=== PATIENT | female | born 1995 | race Caucasian/White ===

== ENCOUNTER 2017-03-25 14:33 | Emergency (ER) | payer OTHER ==
[2017-03-25 14:37] VITALS: TEMP 97.9; BMI 31.1
--- NOTE | 2017-03-25 14:40 | PDOC ---
Rapid Medical Evaluation Chief Complaint: Vaginal Bleeding Time Seen by Provider: 03/25/17 14:36 Medical Evaluation: Allergies Allergy/AdvReac Type Severity Reaction Status Date / Time No Known Allergies Allergy Verified 03/25/17 14:35 03/25/17 14:36 The patient presents with a chief complaint of: Vaginal bleeding x1 day, 8 weeks I have performed a brief in-person evaluation of this patient; Pertinent physical exam findings TTP suprapubic region I have ordered the following: CBC, CMP, Beta Hcg, Type and Screen, UA, UC, Transvaginal US The patient will proceed to the ED for further evaluation.
[2017-03-25 15:36] LABS: URINE APPEARANCE SLCLOUDY; URINE BILIRUBIN NEGATIVE (NEGATIVE); URINE BLOOD 3+ (NEGATIVE); URINE COLOR YELLOW; URINE GLUCOSE (UA) NEGATIVE (NEGATIVE); URINE KETONE TRACE (NEGATIVE); URINE LEUK ESTERASE NEGATIVE (NEGATIVE); URINE NITRITE NEGATIVE (NEGATIVE); URINE PROTEIN NEGATIVE (NEGATIVE); URINE UROBILINOGEN NEGATIVE mg/dL (0.2-1.0)
[2017-03-25 15:39] LABS: URINE MUCUS RARE; URINE RBC 1 /hpf (0-3); URINE WBC 4 /hpf (3-5)
[2017-03-25] MEDS ORDERED: SODIUM CHLORIDE 0.9% 1000 ML INFUS.BAG IV ONE (15:39)
[2017-03-25 15:43] LABS: BASOPHIL 0.3 % (0-2.0); EOSINOPHIL 1.8 % (0-4.5); MCH 28.5 pg (25.7-33.7); MCHC 34.5 g/dl (32.0-36.0); MEAN CELL VOLUME 82.5 fl (80-96); MEAN PLT VOLUME 10.2 fl (7.5-11.1); NEUTROPHILS 63.1 % (42.8-82.8); PLATELET COUNT 244 K/MM3 (134-434); RDW 13.8 % (11.6-15.6); WHITE BLOOD COUNT 9.4 K/mm3 (4.0-10.0)
--- NOTE | 2017-03-25 15:46 | PDOC ---
History of Present Illness - General History Source: Patient Exam Limitations: No Limitations <Sugey Kumar - Last Filed: 03/25/17 15:39> - General History Source: Patient Exam Limitations: No Limitations - History of Present Illness Initial Comments: 03/25/17 15:46 The patient is a 22 year old female, who is currently 8 weeks with no significant past medical history who presents to the emergency department with with dysfunctional vaginal bleeding and lower abdominal pain. The patient reports having sharp lower abdominal pain for about an hour and a half. She reports having heavy bleeding with brown clots. LMP was /7. She notes also feeling dizzy and nauseous. She denies recent fevers, or chills. She denies recent nausea, vomit, diarrhea or constipation. She denies recent dysuria, frequency, urgency or hematuria. She denies recent chest pain or shortness of breath. Allergies: NKA Past surgical history: None reported. Social history: Nonsmoker. Denies EtOH use and recreational drug use. <Aki Ornelas - Last Filed: 03/25/17 15:47> - General Chief Complaint: Vaginal Bleeding Stated Complaint: 8WKS /BLEEDING Time Seen by Provider: 03/25/17 14:36 Past History - Past Medical History COPD: No - Reproductive History Is Patient Now?: Yes (#): 1 Para: 0 - Suicide/Smoking/Psychosocial Hx Smoking History: Former smoker Have you smoked in the past 12 months: No Information on smoking cessation initiated: No Hx Alcohol Use: No Drug/Substance Use Hx: No Substance Use Type: None <Sugey Kumar - Last Filed: 03/25/17 15:39> <Aki Ornelas - Last Filed: 03/25/17 15:47> - Past Medical History Allergies/Adverse Reactions: Allergies Allergy/AdvReac Type Severity Reaction Status Date / Time No Known Allergies Allergy Verified 03/25/17 14:35 Home Medications: Ambulatory Orders NK [No Known Home Medication] 03/25/17 Review of Systems - Review of Systems Able to Perform ROS?: Yes Comments:: 03/25/17 15:46 GENERAL/CONSTITUTIONAL: No fever or chills. No weakness. HEAD, EYES, EARS, NOSE AND THROAT: No change in vision. No ear pain or discharge. No sore throat. CARDIOVASCULAR: No chest pain or shortness of breath. RESPIRATORY: No cough, wheezing, or hemoptysis. GASTROINTESTINAL: +nausea and abdominal pain. No, vomiting, diarrhea or constipation. GENITOURINARY: +Dysfunctional vaginal bleeding. No dysuria, frequency, or change in urination. MUSCULOSKELETAL: No joint or muscle swelling or pain. No neck or back pain. SKIN: No rash NEUROLOGIC: +dizzy. No loss of consciousness, or change in strength/sensation. ENDOCRINE: No increased thirst. No abnormal weight change. HEMATOLOGIC/LYMPHATIC: No anemia, easy bleeding, or history of blood clots. ALLERGIC/IMMUNOLOGIC: No hives or skin allergy. <Aki Ornelas - Last Filed: 03/25/17 15:47> *Physical Exam - Vital Signs Last Vital Signs Temp Pulse Resp BP Pulse Ox 97.9 F 79 18 118/69 100 03/25/17 14:35 03/25/17 14:35 03/25/17 14:35 03/25/17 14:35 03/25/17 14:35 <Sugey Kumar - Last Filed: 03/25/17 15:39> - Vital Signs Last Vital Signs Temp Pulse Resp BP Pulse Ox 97.9 F 79 18 118/69 100 03/25/17 14:35 03/25/17 14:35 03/25/17 14:35 03/25/17 14:35 03/25/17 14:35 - Physical Exam Comments: 03/25/17 15:47 GENERAL: Awake, alert, and fully oriented, in no acute distress HEAD: No signs of trauma EYES: PERRLA, EOMI, sclera anicteric, conjunctiva clear ENT: Auricles normal inspection, hearing grossly normal, nares patent, Moist mucosa NECK: Normal ROM, supple, JVD, or masses LUNGS: Breath sounds equal, clear to auscultation bilaterally. No wheezes, and no crackles HEART: Regular rate and rhythm, normal S1 and S2, no murmurs, rubs or gallops ABDOMEN: Soft, bilateral lower quadrant lower pubic tenderness, normoactive bowel sounds. No guarding, no rebound. No masses OBGYN: Small blood coming from the os. No pooling of the blood. Cervix is closed. No adnexal masses or tenderness. EXTREMITIES: Normal range of motion, no edema. No clubbing or cyanosis. No cords, erythema, or tenderness. 2+DP/PT pulses. NEUROLOGICAL: Normal speech, normal gait, moves all extremities equally. Speech clear. SKIN: Warm, Dry, normal turgor, no rashes or lesions noted. <Aki Ornelas - Last Filed: 03/25/17 15:47> ED Treatment Course - LABORATORY CBC & Chemistry Diagram: 03/25/17 15:09 03/25/17 15:09 - ADDITIONAL ORDERS Additional order review: Laboratory Results 03/25/17 15:09 Urine Color Yellow Urine Appearance Slcloudy Urine pH 5.0 Ur Specific [place] 1.026 Urine Protein Negative Urine Glucose (UA) Negative Urine Ketones Trace H Urine Blood 3+ H Urine Nitrite Negative Urine Bilirubin Negative Urine Urobilinogen Negative <Sugey Kumar - Last Filed: 03/25/17 15:39> - LABORATORY CBC & Chemistry Diagram: 03/25/17 15:09 03/25/17 15:09 - ADDITIONAL ORDERS Additional order review: Laboratory Results 03/25/17 15:09 Urine Color Yellow Urine Appearance Slcloudy Urine pH 5.0 Ur Specific [place] 1.026 Urine Protein Negative Urine Glucose (UA) Negative Urine Ketones Trace H Urine Blood 3+ H Urine Nitrite Negative Urine Bilirubin Negative Urine Urobilinogen Negative <Aki Ornelas - Last Filed: 03/25/17 15:47> Medical Decision Making - Medical Decision Making 03/25/17 15:40 22-year-old female currently 8 weeks with an LMP of January 24 here today complaining of lower abdominal pain and vaginal bleeding which started approximately 1:30 PM today 2 hours prior to arrival. Does have mild nausea feeling lightheaded bleeding is a little less than a normal. She did have small clots no history of ectopic or miscarriage no urinary complaints no vomiting pain is moderate and crampy On exam patient is awake alert no acute distress cardiac lung exam is unremarkable abdomen is noted for bilateral lower quadrant and suprapubic tenderness no rebound or guarding pelvic with Pattee nurse present shows scant blood from the cervical Oz it's closed there is no adnexal tenderness or adnexal masses neuro alert and oriented 3 Differential is threatened AB, ectopic, incomplete AB versus early IUP plan IV fluids transvaginal ultrasound blood type and reassess beta hCG <Sugey Kumar - Last Filed: 03/25/17 15:39> *DC/Admit/Observation/Transfer - Attestations Scribe Attestion: 03/25/17 15:47 Documentation prepared by Aki Ornelas, acting as medical technician for Sugey Kumar MD. <Aki Ornelas - Last Filed: 03/25/17 15:47>
[2017-03-25 16:02] LABS: ALBUMIN 3.7 g/dl (3.4-5.0); ANION GAP 9 (8-16); BILIRUBIN,TOTAL 0.2 mg/dL (0.2-1.0); CALCIUM 8.6 mg/dL (8.5-10.1); CO2 23 mmol/L (21-32); CREATININE 0.4 mg/dL (0.55-1.02); GLUCOSE,RANDOM 87 mg/dL (74-106); SGOT/AST 38 U/L (15-37); SGPT/ALT 72 U/L (12-78)
[2017-03-25 16:16] LABS: ALK PHOS 60 U/L (45-117)
--- NOTE | 2017-03-25 18:35 | PDOC ---
*Physical Exam - Vital Signs Last Vital Signs Temp Pulse Resp BP Pulse Ox 97.9 F 79 18 118/69 100 03/25/17 14:35 03/25/17 14:35 03/25/17 14:35 03/25/17 14:35 03/25/17 14:35 - Physical Exam Comments: 03/25/17 18:30 gen: aaox3, nad heart: +s1s2 tachy lungs:cta abd: soft, nt/nd +bs ext: no c/c/e ED Treatment Course - LABORATORY CBC & Chemistry Diagram: 03/25/17 15:09 03/25/17 15:09 - ADDITIONAL ORDERS Additional order review: Laboratory Results 03/25/17 03/25/17 03/25/17 15:09 15:09 15:09 Sodium 138 Potassium 3.5 Chloride 106 Carbon Dioxide 23 Anion Gap 9 BUN 13 Creatinine 0.4 L Creat Clearance w eGFR > 60 Random Glucose 87 Calcium 8.6 Total Bilirubin 0.2 AST 38 H ALT 72 Alkaline Phosphatase 60 Total Protein 7.0 Albumin 3.7 Beta HCG, Quant 8686.9 Urine Color Yellow Urine Appearance Slcloudy Urine pH 5.0 Ur Specific [place] 1.026 Urine Protein Negative Urine Glucose (UA) Negative Urine Ketones Trace H Urine Blood 3+ H Urine Nitrite Negative Urine Bilirubin Negative Urine Urobilinogen Negative Urine WBC (Auto) 4 Urine RBC (Auto) 1 Ur Epithelial Cells Rare Urine Mucus Rare Blood Type O POSITIVE Antibody Screen Negative 03/25/17 15:09 RBC 4.59 MCV 82.5 MCHC 34.5 RDW 13.8 MPV 10.2 Neutrophils % 63.1 Lymphocytes % 27.5 Monocytes % 7.3 Eosinophils % 1.8 Basophils % 0.3 - Medications Given in the ED: ED Medications Discontinued Medications Generic Name Dose Route Start Last Admin Trade Name Freq PRN Reason Stop Dose Admin Sodium Chloride 1,000 ml 03/25/17 15:39 03/25/17 15:48 Normal Saline - IV 03/25/17 15:40 1,000 ml ONCE ONE Administration Medical Decision Making - Medical Decision Making 03/25/17 18:30 pt signed out pending labs and ultrasound -gestational sac without yolk sac -beta >8000 -passed 1 clot, no cramping -discussed need for repeat beta hcg in 48 hours (wednesday) -discussed need for repeat U/S on wednesday -discussed in detail all reasons to return to the ED -low suspicion for ectopic given no abd pain, no adnexal masses visualized on ultrasound -pt stable for d/c to home Rh + Pt verbalzies all understanding of instrcutions stable for d/c to home *DC/Admit/Observation/Transfer Diagnosis at time of Disposition: Threatened - Discharge Dispostion Disposition: HOME Condition at time of disposition: Stable Admit: No - Referrals Referrals: Matias Molina MD [Staff Physician] - - Patient Instructions Printed Discharge Instructions: DI for Threatened Additional Instructions: Please return to the ED on wednesday for repeat lab work and transvaginal ultrasound. You need to repeat your Beta HCG on wednesday. Please return to the ED if any symptoms worsen or you have any concerns. Please make an appointment to see the FURNITURE CLEANER. Print Language: LAO - Post Discharge Activity Forms/Work/School Notes: Back to Work
[2017-03-25 18:45] VITALS: BP 116/68; PULSE 72
[2017-03-25 19:41] LABS: URINE LEUK ESTERASE Negative (NEGATIVE)
== END 2017-03-25 18:45 | disposition home or self-care (01) ==
LOC: JER 14:33
PROC: 3E0337Z Introduction of Electrolytic and Water Balance Substance into Peripheral Vein, Percutaneous Approach (ICD-10-PCS; principal; 2017-03-25)
DX: O26.891 Other specified pregnancy related conditions, first trimester (principal); Z3A.08 8 weeks gestation of pregnancy; O20.0 Threatened abortion
CPT/HCPCS: 36415; 76817-TC; 80053; 81003; 81015; 84702; 85025; 86850; 86900; 86901; 87086; 99284-25

== ENCOUNTER 2017-03-27 14:05 | Emergency (ER) | payer OTHER ==
[2017-03-27 14:14] VITALS: TEMP 98.7; BMI 31.4
--- NOTE | 2017-03-27 14:40 | PDOC ---
History of Present Illness - General History Source: Patient Exam Limitations: No Limitations - History of Present Illness Initial Comments: 03/27/17 14:55 Chief complaint: Follow-up, vaginal bleeding Patient is a healthy 22-year-old female who was seen here 2 days ago with , 8 weeks with vaginal bleeding who was found to have a interuterine sac, quantitative hCG of 8686.9 and blood type of O+ and hemoglobin of 13.1. Patient was instructed to return for repeat quantitative and ultrasound. Patient feels well, no pain and scant bleeding. GENERAL/CONSTITUTIONAL: No fever, weakness. dizziness HEAD, EYES, EARS, NOSE AND THROAT: No change in vision. No ear pain or discharge. No sore throat. CARDIOVASCULAR: No chest pain RESPIRATORY: No shortness of breath or cough GASTROINTESTINAL: No pain, nausea, vomiting, diarrhea or constipation GENITOURINARY: No dysuria, + vaginal bleeding, MUSCULOSKELETAL: No neck or back pain SKIN: No rash NEUROLOGIC: No headache, vertigo, loss of consciousness, or loss of sensation. GENERAL: The patient is awake, alert, and fully oriented, in no acute distress. HEAD: Normal with no signs of trauma. EYES: Pupils equal, round and reactive to light, sclera anicteric, conjunctiva clear. ENT: pharynx: no erythema, no exudate, uvula midline NECK: supple CHEST: clear, nontender, rr ABD: soft, nontender Pelvic: Scant blood in the vagina, no active bleeding, no tenderness, no discharge EXTREMITIES: Normal range of motion, no edema. NEUROLOGICAL: Normal speech, normal gait. SKIN: Warm, Dry 03/27/17 14:58 <Laurel Peoples - Last Filed: 03/27/17 19:17> <Thi Lyles - Last Filed: 03/27/17 20:42> - General Chief Complaint: Vaginal Bleeding Stated Complaint: LAB WORK Time Seen by Provider: 03/27/17 14:39 Past History - Past Medical History COPD: No - Reproductive History (#): 1 Para: 0 - Suicide/Smoking/Psychosocial Hx Smoking History: Never smoked Have you smoked in the past 12 months: No Hx Alcohol Use: No Drug/Substance Use Hx: No Substance Use Type: None <Laurel Peoples - Last Filed: 03/27/17 19:17> <Thi Lyles - Last Filed: 03/27/17 20:42> - Past Medical History Allergies/Adverse Reactions: Allergies Allergy/AdvReac Type Severity Reaction Status Date / Time No Known Allergies Allergy Verified 03/27/17 14:14 Home Medications: Ambulatory Orders NK [No Known Home Medication] 03/25/17 *Physical Exam - Vital Signs Last Vital Signs Temp Pulse Resp BP Pulse Ox 98.7 F 88 20 135/65 99 03/27/17 14:09 03/27/17 14:09 03/27/17 14:09 03/27/17 14:09 03/27/17 14:09 <Laurel Peoples - Last Filed: 03/27/17 19:17> - Vital Signs Last Vital Signs Temp Pulse Resp BP Pulse Ox 98.7 F 88 20 135/65 99 03/27/17 14:09 03/27/17 14:09 03/27/17 14:09 03/27/17 14:09 03/27/17 14:09 <Thi Lyles - Last Filed: 03/27/17 20:42> ED Treatment Course - ADDITIONAL ORDERS Additional order review: Laboratory Results 03/27/17 15:05 Beta HCG, Quant 6470.8 <Thi Lyles - Last Filed: 03/27/17 20:42> Medical Decision Making - Medical Decision Making 03/27/17 14:59 Patient for re-eval of status with a Quant of 8686.92 days ago and an ultrasound that showed an intrauterine sac, Rh+ will get repeat quantitative, and ultrasound, patient has very little bleeding and no pain. 03/27/17 18:58 quantitative decreased to under 7000, awaiting us report signed out to Abdirizak lyles 03/27/17 19:17 <Laurel Peoples - Last Filed: 03/27/17 19:17> - Medical Decision Making 03/27/17 20:33 Spoke with patient regarding results of Ultrasound. Translation phone: Supervisor Fleshing [phone] Jennifer. Discussed results of blood work and ultrasound and importance of follow-up. Patient to return Apr 03 as discussed if she can not get in to see her POLICE PATROL OFFICER. Patient verbalized she has an appointment with her MEDICINE TEACHER on April 06. Patient is to return if any other concerns arise. Patient verbalized understanding. <Thi Lyles - Last Filed: 03/27/17 20:42> *DC/Admit/Observation/Transfer <Laurel Peoples - Last Filed: 03/27/17 19:17> - Discharge Dispostion Admit: No <Thi Lyles - Last Filed: 03/27/17 20:42> Diagnosis at time of Disposition: Anembryonic - Discharge Dispostion Disposition: HOME Condition at time of disposition: Stable - Patient Instructions Printed Discharge Instructions: DI for Miscarriage, Dealing With Miscarriage Additional Instructions: Cassy un seguimiento con maradiaga obstetra / gineclogo segn lo programado. Si puede obtener marquez huong antes, hgalo y lleve consigo los informes de ultrasonido. Si no puede ingresar para paco a maradiaga gineclogo antes del 23 de diciembre, regrese al departamento de emergencia el de diciembre para repetir el anlisis de robert y el ultrasonido. Si desarrolla fiebre, dolor abdominal, n / v / d, o cualquier otra queja, regrese para marquez evaluacin adicional. Abstngase de tener relaciones sexuales lauren francisco tiempo, hasta que maradiaga cuerpo se restablezca (generalmente 2 ciclos menstruales). Follow up with your POLICE PATROL OFFICER as scheduled. If you are able to get a sooner appointment please do so and bring ultrasound reports with you. If you are unable to get in to see your MEDICINE TEACHER before April 03, then return to emergency department on April 03 for repeat blood work and ultrasound. If you develop fever, abdominal pain, n/v/d, or any other complaints return for further evaluation. Refrain from sexual intercourse during this time, until your body resets itself (usually 2 menstrual cycles). Print Language: NEPALESE
[2017-03-27 20:49] VITALS: BP 109/58; PULSE 81
--- NOTE | 2017-03-28 08:26 | PDOC ---
*Physical Exam - Vital Signs Last Vital Signs Temp Pulse Resp BP Pulse Ox 98.7 F 81 18 109/58 98 03/27/17 14:09 03/27/17 20:47 03/27/17 20:47 03/27/17 20:47 03/27/17 20:47 Medical Decision Making - Medical Decision Making 03/28/17 08:26 Pt seen by the Advanced Practice Provider under my direct supervision Ancillary studies reviewed I agree with plan as outlined by the Advanced Practice Provider *DC/Admit/Observation/Transfer Diagnosis at time of Disposition: Anembryonic - Discharge Dispostion Disposition: HOME Condition at time of disposition: Stable - Referrals - Patient Instructions Printed Discharge Instructions: Dealing With Miscarriage, DI for Miscarriage Additional Instructions: Cassy un seguimiento con maradiaga obstetra / gineclogo segn lo programado. Si puede obtener marquez huong antes, hgalo y lleve consigo los informes de ultrasonido. Si no puede ingresar para paco a maradiaga gineclogo antes del de diciembre, regrese al departamento de emergencia el diciemb para repetir el anlisis de robert y el ultrasonido. Si desarrolla fiebre, dolor abdominal, n / v / d, o cualquier otra queja, regrese para marquez evaluacin adicional. Abstngase de tener relaciones sexuales lauren francisco tiempo, hasta que maradiaga cuerpo se restablezca (generalmente 2 ciclos menstruales). Follow up with your LEARNING DISABLED TEACHER as scheduled. If you are able to get a sooner appointment please do so and bring ultrasound reports with you. If you are unable to get in to see your RELIEF CAPTAIN before April 03, then return to emergency department on April 03 for repeat blood work and ultrasound. If you develop fever, abdominal pain, n/v/d, or any other complaints return for further evaluation. Refrain from sexual intercourse during this time, until your body resets itself (usually 2 menstrual cycles). Print Language: MOLDOVAN - Post Discharge Activity
== END 2017-03-27 20:53 | disposition home or self-care (01) ==
LOC: JER 14:05
DX: O26.891 Other specified pregnancy related conditions, first trimester (principal); O36.80X0 Pregnancy with inconclusive fetal viability, not applicable or unspecified; Z30.8 Encounter for other contraceptive management
CPT/HCPCS: 36415; 76817-TC; 84702; 99281-25

== ENCOUNTER 2017-06-06 23:33 | Emergency (ER) | payer OTHER ==
[2017-06-07 01:23] VITALS: BP 114/83; PULSE 79; TEMP 98.1; BMI 33.2
--- NOTE | 2017-06-07 01:30 | PDOC ---
Attending Attestation - HPI HPI: 06/07/17 02:32 Pt is a 22 yo F with no PMHx who presents to the ED with vaginal bleeding for the past 2 days. Patient reports associated dysuria and suprapubic pain accompanied with nausea and shortness of breath. Patient states she has been using 2-3 pads per day for her bleeding and presents to the ED for further evaluation. Patient also reports spontaneous 2 months ago. - Medical Decision Making 06/07/17 02:31 Documentation prepared by Polina Burrell, acting as medical insurance clerk for Darlene Tate MD <Polina Burrell - Last Filed: 06/07/17 04:11> - Resident Resident Name: Nick Garcias - ED Attending Attestation I have performed the following: I have examined & evaluated the patient, The case was reviewed & discussed with the resident, I agree w/resident's findings & plan, Exceptions are as noted - Physicial Exam PE: GENERAL: Awake, alert, and fully oriented, in no acute distress HEAD: No signs of trauma EYES: PERRLA, EOMI, sclera anicteric, conjunctiva clear ENT: Auricles normal inspection, hearing grossly normal, nares patent, oropharynx clear without exudates. Moist mucosa NECK: Normal ROM, supple, no lymphadenopathy, JVD, or masses LUNGS: Breath sounds equal, clear to auscultation bilaterally. No wheezes, and no crackles HEART: Regular rate and rhythm, normal S1 and S2, no murmurs, rubs or gallops ABDOMEN: Soft, nontender, normoactive bowel sounds. No guarding, no rebound. No masses EXTREMITIES: Normal range of motion, no edema. No clubbing or cyanosis. No cords, erythema, or tenderness NEUROLOGICAL: Cranial nerves II through XII grossly intact. Normal speech, normal gait SKIN: Warm, Dry, normal turgor, no rashes or lesions noted. : No exterior lesions. +Sm amt blood in vault. No discharge. Os closed. + Cervical tenderness. Adnexae nontender B/L. - Medical Decision Making Pt afebrile, +bleeding on exam. Noted to have leukocytosis, no obvious source. She has positive test, unclear if this is new or if there is retained material from prior 2 months ago (unlikely). D/w Dr. Jacobo, recommended abx and prompt f/u in clinic. <Darlene Tate - Last Filed: 06/07/17 04:45>
[2017-06-07 02:04] LABS: URINE APPEARANCE CLEAR; URINE BILIRUBIN NEGATIVE (NEGATIVE); URINE BLOOD 3+ (NEGATIVE); URINE COLOR LTYELLOW; URINE GLUCOSE (UA) NEGATIVE (NEGATIVE); URINE KETONE 1+ (NEGATIVE); URINE LEUK ESTERASE TRACE (NEGATIVE); URINE NITRITE NEGATIVE (NEGATIVE); URINE UROBILINOGEN NEGATIVE mg/dL (0.2-1.0)
[2017-06-07 02:05] LABS: URINE PROTEIN 1+ (NEGATIVE)
--- NOTE | 2017-06-07 02:05 | PDOC ---
History of Present Illness - General Chief Complaint: Pain Stated Complaint: STOMACH PAIN Time Seen by Provider: 06/07/17 01:27 History Source: Patient Exam Limitations: Language Barrier - History of Present Illness Initial Comments: 06/07/17 02:03 History taken via seismic interpreter. Patient is a 22F with history of a spontaneous two months ago here today complaining of abdominal pain from her belly button radiating to her lower abdomen for the 3 days. She is also complaining of associated pain with urination, vaginal pain and vaginal bleeding. She states her last menstrual period was on 05/07 but has had several episodes of vaginal bleeding, using about 2-3 pads per day. She has associated nausea and shortness of breath. Denies fevers, chills, chest pain. Past History - Past Medical History Allergies/Adverse Reactions: Allergies Allergy/AdvReac Type Severity Reaction Status Date / Time No Known Allergies Allergy Verified 03/27/17 14:14 Home Medications: Ambulatory Orders Cephalexin Monohydrate [Keflex -] 500 mg PO BID #14 capsule 06/07/17 COPD: No - Reproductive History (#): 1 Para: 0 - Immunization History Immunization Up to Date: No - Suicide/Smoking/Psychosocial Hx Smoking History: Smoker current status UNK Have you smoked in the past 12 months: No Information on smoking cessation initiated: No Hx Alcohol Use: No Drug/Substance Use Hx: No Substance Use Type: None Review of Systems - Review of Systems Comments:: 06/07/17 02:11 GENERAL/CONSTITUTIONAL: No fever or chills. HEAD, EYES, EARS, NOSE AND THROAT: No change in vision. No sore throat. CARDIOVASCULAR: No chest pain. Positive for shortness of breath. RESPIRATORY: No cough, wheezing, or hemoptysis. GASTROINTESTINAL: Positive for nausea. Negative for vomiting, diarrhea or constipation. GENITOURINARY: No dysuria, frequency, or change in urination. MUSCULOSKELETAL: No joint or muscle swelling or pain. No neck or back pain. SKIN: No rash NEUROLOGIC: No headache, vertigo, loss of consciousness, or change in strength/ sensation. ENDOCRINE: No increased thirst. No abnormal weight change HEMATOLOGIC/LYMPHATIC: No anemia, easy bleeding, or history of blood clots. ALLERGIC/IMMUNOLOGIC: No hives or skin allergy. *Physical Exam - Vital Signs Last Vital Signs Temp Pulse Resp BP Pulse Ox 98.1 F 79 18 114/83 100 06/06/17 23:55 06/06/17 23:55 06/06/17 23:55 06/06/17 23:55 06/06/17 23:55 - Physical Exam Comments: 06/07/17 02:13 GENERAL: Awake, alert, and fully oriented, in no acute distress HEAD: No signs of trauma, normocephalic, atraumatic EYES: PERRLA, EOMI, sclera anicteric, conjunctiva clear ENT: Auricles normal inspection, hearing grossly normal, nares patent, oropharynx clear without LUNGS: No distress, speaks full sentences, clear to auscultation bilaterally HEART: Regular rate and rhythm, normal S1 and S2, no murmurs, rubs or gallops, peripheral pulses normal and equal bilaterally. ABDOMEN: Soft, tender in suprapubic region. No guarding, no rebound. EXTREMITIES: Normal inspection, Normal range of motion, no edema. No clubbing or cyanosis. NEUROLOGICAL: Cranial nerves II through XII grossly intact. Normal speech, normal gait, no focal sensorimotor deficits SKIN: Warm, Dry, normal turgor, no rashes or lesions noted. 06/07/17 04:34 PELVIC: Normal external genitalia, +CMT, no adnexal masses, scant blood, no discharge appreciated ED Treatment Course - LABORATORY CBC & Chemistry Diagram: 06/07/17 02:53 06/07/17 02:53 - RADIOLOGY Radiology Studies Ordered: Category Date Time Status TRANSVAGINAL ULTRASOUND US [US] Stat Ultrasound 06/07/17 01:47 Ordered Medical Decision Making - Medical Decision Making 06/07/17 02:15 22F with history today of spontaneous here today with lower abdominal pain and vaginal bleeding. Vital signs stable. DDx includes, but is not limited to: ectopic, uti, pid. Will obtain ultrasound initially due to not having ultrasound past 2am. 06/07/17 04:39 Laboratory Tests 06/07/17 06/07/17 06/07/17 01:55 01:55 02:53 WBC 16.7 H D Hgb 10.5 L D Hct 32.7 Plt Count 302 D INR Urine Ketones 1+ H Urine Blood 3+ H Urine Nitrite Negative Ur Leukocyte Esterase Trace Urine RBC (Auto) 883 Urine HCG, Qual Positive 06/07/17 02:53 WBC Hgb Hct Plt Count INR 1.02 Urine Ketones Urine Blood Urine Nitrite Ur Leukocyte Esterase Urine RBC (Auto) Urine HCG, Qual CBC shows leukocytosis, mild anemia. UA significant for 1+ ketones and blood. CMP unremarkable. Pelvic exam shows CMT 06/07/17 04:42 Dr Jacobo is patient's OB, consulted. Suggests discharge with close follow up, next two days. Will discharge on keflex per her recommendations. Blood type O+, no rhogam required. *DC/Admit/Observation/Transfer Diagnosis at time of Disposition: Vaginal bleeding, Leukocytosis - Discharge Dispostion Disposition: HOME Condition at time of disposition: Good Admit: No - Prescriptions Prescriptions: Cephalexin Monohydrate [Keflex -] 500 mg PO BID #14 capsule - Referrals Referrals: Stephania Jacobo MD [Staff Physician] - - Patient Instructions Additional Instructions: Please return if you have any new, worsening or concerning symptoms. Please call your OB Dr Jacobo this morning to set up a follow up appointment. It is extremely important you are seen in the next 48 hours. Please return to the ED in case you are unable to see your OB in two days or if you have a fever or worsening abdominal pain. You were prescribed an antibiotic in the ED today. Please pick your prescription from the pharmacy. Your next dose is due this evening. Please complete your course of antibiotics even if you feel improved. - Post Discharge Activity Forms/Work/School Notes: Back to Work
[2017-06-07 02:08] LABS: EPI CELLS RARE /HPF (FEW); URINE BACTERIA RARE /hpf (NONE SEEN); URINE MUCUS RARE
[2017-06-07] MEDS ORDERED: SODIUM CHLORIDE 1,000 ML IV STA (02:38)
[2017-06-07 03:09] LABS: BASO % 0.4 % (0-2.0); EOS % 0.2 % (0-4.5); HEMATOCRIT 32.7 % (32.4-45.2); HEMOGLOBIN 10.5 GM/dL (10.7-15.3); LYMPH % 7.8 % (8-40); MCH 23.7 pg (25.7-33.7); MCHC 32.2 g/dl (32.0-36.0); MEAN CELL VOLUME 73.5 fl (80-96); MEAN PLT VOLUME 9.1 fl (7.5-11.1); MONO % 3.8 % (3.8-10.2); NEUT % 87.8 % (42.8-82.8); PLATELET COUNT 302 K/MM3 (134-434); RBC 4.45 M/mm3 (3.60-5.2); RDW 15.4 % (11.6-15.6); WHITE BLOOD COUNT 16.7 K/mm3 (4.0-10.0)
[2017-06-07 03:22] LABS: INR 1.02 (0.82-1.09); PROTHROMBIN TIME (PATIENT) 11.5 SEC (9.98-11.88)
[2017-06-07 03:37] LABS: ALBUMIN 3.7 g/dl (3.4-5.0); ANION GAP 13 (8-16); BILIRUBIN,TOTAL 0.2 mg/dL (0.2-1.0); BLOOD UREA NITROGEN 16 mg/dL (7-18); CALCIUM 8.6 mg/dL (8.5-10.1); CHLORIDE 104 mmol/L (98-107); CO2 20 mmol/L (21-32); CREATININE 0.5 mg/dL (0.55-1.02); GLUCOSE,RANDOM 111 mg/dL (74-106); POTASSIUM 3.6 mmol/L (3.5-5.1); SGOT/AST 26 U/L (15-37); SGPT/ALT 58 U/L (12-78); SODIUM 137 mmol/L (136-145); TOT PROT 7.3 g/dl (6.4-8.2)
[2017-06-07 03:39] LABS: ALK PHOS 73 U/L (45-117)
[2017-06-07] MEDS ORDERED: CEPHALEXIN MONOHYDRATE 500 MG CAPSULE (UD) PO ONE (04:45)
[2017-06-07] MEDS ORDERED: CEPHALEXIN MONOHYDRATE 250 MG CAPSULE (FP) ONE (05:15)
== END 2017-06-07 05:39 | disposition home or self-care (01) ==
LOC: JER 23:33 → SUPCPDRO 23:33 → JER 06-07 05:39
PROC: 3E0337Z Introduction of Electrolytic and Water Balance Substance into Peripheral Vein, Percutaneous Approach (ICD-10-PCS; principal; 2017-06-06)
DX: N93.8 Other specified abnormal uterine and vaginal bleeding (principal); D72.828 Other elevated white blood cell count
CPT/HCPCS: 36415; 76830-TC; 80053; 81003; 81015; 84702; 84703; 85025; 85610; 86850; 86900; 86901; 87491; 87591; 96360; 99283-25

== ENCOUNTER 2017-06-30 18:01 | Emergency (ER) | payer OTHER ==
--- NOTE | 2017-06-30 18:10 | PDOC ---
Rapid Medical Evaluation Time Seen by Provider: 06/30/17 18:09 Medical Evaluation: Allergies Allergy/AdvReac Type Severity Reaction Status Date / Time No Known Allergies Allergy Verified 06/27/17 20:30 06/30/17 18:10 The patient presents with a chief complaint of: repeat hcg I have performed a brief in-person evaluation of this patient. Pertinent physical exam findings: vss, I have ordered the following: quantitative hcg The patient will proceed to the ED for further evaluation. 06/30/17 18:12
[2017-06-30 18:14] VITALS: BP 125/75; PULSE 87; TEMP 98.9; BMI 33.2
--- NOTE | 2017-06-30 19:03 | PDOC ---
History of Present Illness - General Chief Complaint: [facility] [place] Stated Complaint: REVIST Time Seen by Provider: 06/30/17 18:09 History Source: Patient Exam Limitations: Language Barrier ([employer] japanese interpreter [id number]) - History of Present Illness Initial Comments: 06/30/17 19:03 The patient is a 22 year old female, (1 involuntary ), was seen in the emergency department on beta-HCG was 30, was told to return for repeat beta hCG. Patient was seen initially in the emergency department on 226 for abdominal cramping and sudden onset of right quadrant pain ultrasound was performed at that time and demonstrated ruptured cyst and patient tested positive for . 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 On 318 started to have similar symptoms which prompted her to return to the ER, at that time beta hCG was 30. Patient denies any current pain, no vaginal bleeding, no vaginal discharge. Denies fever or chills, no diarrhea, no chest pain or shortness of breath. No back or flank pain. Past History - Past Medical History Allergies/Adverse Reactions: Allergies Allergy/AdvReac Type Severity Reaction Status Date / Time No Known Allergies Allergy Verified 06/30/17 18:10 Home Medications: Ambulatory Orders NK [No Known Home Medication] 06/30/17 COPD: No - Reproductive History (#): 1 Para: 0 Cervical CA: No Dysfunctional Uterine Bleeding: No Ectopic : No Endometrial CA: No Polycystic Ovaries: No Therapeutic (s) & number: Yes Tubal Ligation: No - Immunization History Immunization Up to Date: No - Suicide/Smoking/Psychosocial Hx Smoking History: Never smoked Have you smoked in the past 12 months: No Hx Alcohol Use: No Drug/Substance Use Hx: No Substance Use Type: None Review of Systems - Review of Systems Constitutional: No: Symptoms Reported HEENTM: No: Symptoms Reported Respiratory: No: Symptoms reported Cardiac (ROS): No: Symptoms Reported ABD/GI: No: Symptoms Reported : No: Symptoms Reported Hematologic/Lymphatic: No: Symptoms Reported All Other Systems: Reviewed and Negative *Physical Exam - Vital Signs Last Vital Signs Temp Pulse Resp BP Pulse Ox 98.9 F 87 19 125/75 97 06/30/17 18:11 06/30/17 18:11 06/30/17 18:11 06/30/17 18:11 06/30/17 18:11 - Physical Exam General Appearance: Yes: Appropriately Dressed. No: Apparent Distress Respiratory/Chest: positive: Lungs Clear, Normal Breath Sounds Cardiovascular: positive: Regular Rhythm, Regular Rate Female Pelvic Exam: positive: normal external exam Gastrointestinal/Abdominal: positive: Normal Bowel Sounds, Soft. negative: Tender Lymphatic: negative: Adenopathy Integumentary: positive: Normal Color, Dry Neurologic: positive: Fully Oriented Medical Decision Making - Medical Decision Making 06/30/17 19:09 A/P: Patient here for repeat beta hCG last on 06/27/2017 was 30 and also get a repeat urinalysis and urine culture. Patient reports no pain however "feels strain in her vagina". I am signing this patient out to my colleague: [ ADAMA Baum ] In brief, this patient is being seen in the ED for a chief complaint of: [ Requested repeat beta hCG] I have completed the initial assessment interview note and have ordered: Beta hCG, urinalysis and urine culture I have reviewed the following results: All pending Plan for disposition is as follows: [Pending]
[2017-06-30 19:33] LABS: URINE APPEARANCE CLEAR; URINE BILIRUBIN NEGATIVE (NEGATIVE); URINE BLOOD NEGATIVE (NEGATIVE); URINE COLOR LTYELLOW; URINE GLUCOSE (UA) NEGATIVE (NEGATIVE); URINE KETONE NEGATIVE (NEGATIVE); URINE LEUK ESTERASE NEGATIVE (NEGATIVE); URINE NITRITE NEGATIVE (NEGATIVE); URINE PROTEIN NEGATIVE (NEGATIVE)
--- NOTE | 2017-06-30 19:34 | PDOC ---
*Physical Exam - Vital Signs Last Vital Signs Temp Pulse Resp BP Pulse Ox 98.9 F 87 19 125/75 97 06/30/17 18:11 06/30/17 18:11 06/30/17 18:11 06/30/17 18:11 06/30/17 18:11 - Physical Exam General Appearance: Yes: Appropriately Dressed. No: Apparent Distress HEENT: positive: Normal Voice Neck: positive: Supple Respiratory/Chest: negative: Respiratory Distress Gastrointestinal/Abdominal: positive: Soft. negative: Tender Musculoskeletal: negative: CVA Tenderness Integumentary: positive: Dry, Warm Neurologic: positive: Fully Oriented, Alert, Normal Mood/Affect ED Treatment Course - ADDITIONAL ORDERS Additional order review: Laboratory Results 06/30/17 18:30 Beta HCG, Quant 19.8 Medical Decision Making - Medical Decision Making 06/30/17 19:29 Pt s/o to me by EMPLOYMENT LAW SPECIALIST Andolino Patient is a 22-year-old female, , diagnosed with in ER on 2017 with no IUP on ultrasound and e/o ruptured cyst. Patient returned to ER 2 days ago and found to have beta of only 30, down from 246 on visit 06/07/2017. For unclear reasons, patient was told to return today for follow-up beta. Patient has some vague suprapubic pain now. No vag bleed. Of note, UA 2 days ago showed over 200 WBCs and moderate bacteria, no culture sent and patient was not given antibiotics. Denies dysuria, flank pain, nausea, vomiting, fever, chills 06/30/17 19:32 Beta 19 today. Dc w/ abx for uti, cx sent. 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 Take antibiotics as directed. Your beta is 19 today, was 30, 2 days ago and was 246 on 06/07/2017. Please follow-up with your ODD JOBS DAY WORKER at next scheduled appointment - Post Discharge Activity
== END 2017-06-30 19:39 | disposition home or self-care (01) ==
LOC: JERFT 18:01
DX: N39.0 Urinary tract infection, site not specified (principal)
CPT/HCPCS: 36415; 81003; 84702; 87086; 99281-25

== ENCOUNTER 2018-11-04 13:45 | Inpatient (IN) | payer OTHER ==
--- NOTE | 2018-11-04 15:19 | PN ---
Progress Note (short form) - Note Progress Note: cx 3 cm 70 vx -2 mi, nitrazine negative , fhr cat 1, irregular contraction
--- NOTE | 2018-11-04 15:23 | HP ---
Past Medical History - Primary Care Physician PCP:: Matias Molina - Admission Chief Complaint: 40.4 weeks, oligohydramnions, early labor History Source: Patient Limitations to Obtaining History: No Limitations - Past Medical History ...: 2 ...Para: 0 - Past Surgical History Hx Myomectomy: No Hx Transabdominal Cerclage: No - Smoking History Smoking history: Never smoked Have you smoked in the past 12 months: No - Alcohol/Substance Use Hx Alcohol Use: No - Social History Usual Living Arrangement: Yes: With Spouse History of Recent Travel: No Home Medications - Allergies Allergies/Adverse Reactions: Allergies Allergy/AdvReac Type Severity Reaction Status Date / Time No Known Allergies Allergy Verified 06/30/17 18:10 - Home Medications Home Medications: Ambulatory Orders Nitrofurantoin Monohyd/M-Cryst [Macrobid -] 100 mg PO BID #14 capsule 06/30/17
[2018-11-04] MEDS ORDERED: PROMETHAZINE HCL 25 MG/1 ML VIAL IVPUSH ONE (15:30)
[2018-11-04] MEDS ORDERED: BUTORPHANOL TARTRATE 1 MG/ML VIAL IVPUSH ONE (15:30)
[2018-11-04] MEDS ORDERED: DEXTROSE 5%-LACTATED RINGERS 1,000 ML IV SCH (15:30)
[2018-11-04 17:09] VITALS: BMI 36.9
[2018-11-04 17:11] LABS: BASO % 0.3 % (0-2.0); HEMATOCRIT 31.1 % (32.4-45.2); HEMOGLOBIN 10.6 GM/dL (10.7-15.3); MCH 26.8 pg (25.7-33.7); MCHC 34.2 g/dl (32.0-36.0); MEAN CELL VOLUME 78.3 fl (80-96); MEAN PLT VOLUME 9.7 fl (7.5-11.1); NEUT % 77.7 % (42.8-82.8); PLATELET COUNT 271 K/MM3 (134-434); RBC 3.97 M/mm3 (3.60-5.2); RDW 14.6 % (11.6-15.6); WHITE BLOOD COUNT 10.8 K/mm3 (4.0-10.0)
[2018-11-04 17:33] LABS: BLOOD UREA NITROGEN 9.6 mg/dL (7-18); CALCIUM 8.7 mg/dL (8.5-10.1); CREATININE 0.6 mg/dL (0.55-1.3); POTASSIUM 3.6 mmol/L (3.5-5.1)
[2018-11-04 17:33] LABS: INR 0.98 (0.83-1.09); PROTHROMBIN TIME (PATIENT) 11.6 SEC (9.7-13.0)
[2018-11-04 17:35] LABS: ACTIVATED PTT 28.2 SECONDS (25.2-36.5)
[2018-11-04] MEDS ORDERED: OXYTOCIN 30 UNITS in 0.9% NS 30 UNIT/500 ML INFUS.BAG IVPB ONE (20:53)
[2018-11-04] MEDS ORDERED: OXYTOCIN 30 UNITS in 0.9% NS 30 UNIT/500 ML INFUS.BAG IVPB SCH (21:15)
[2018-11-05] MEDS ORDERED: ELECTROLYTE-148 SOLN 1,000 ML IV SCH ×2 (07:00→16:30)
[2018-11-05] MEDS ORDERED: FENTANYL/BUPIVACAINE/NS/PF - PCEA - 50 ML DISP.SYRIN EP ONE ×3 (07:01→15:45)
--- NOTE | 2018-11-05 07:16 | PN ---
Progress Note (short form) - Note Progress Note: cx 5 cm, 80 vx -2 mi, fhr cat 1, regular contraction, wants epidural
[2018-11-05] MEDS ORDERED: NALOXONE HCL 0.4 MG/ML VIAL IVPUSH PRN (07:19)
[2018-11-05] MEDS ORDERED: LIDO 2%/EPI 1:200000 PRESRVFRE (20 ML SDVIAL) ONE (07:21)
[2018-11-05] MEDS ORDERED: FENTANYL/BUPIVACAINE/NS/PF - PCEA - 50 ML DISP.SYRIN EP SCH (07:30)
[2018-11-05] MEDS ORDERED: OXYTOCIN 20 UNITS in 0.9% NS 20 UNIT/1,000 ML INFUS.BAG IV ONE ×2 (13:45→18:12)
[2018-11-05] MEDS ORDERED: LIDOCAINE HCL 1% PRESERVATIVE FREE - 30ML VIAL ONE (13:46)
--- NOTE | 2018-11-05 14:00 | PN ---
Progress Note (short form) - Note Progress Note: cx 8 cm, 80 ,vx -1 mi, arom clear fluid, fhr cat 1, regular contraction
[2018-11-05] MEDS ORDERED: BUPIVACAINE HCL/PF 0.25% (2.5MG/ML) 10 ML VIAL ONE (15:44)
[2018-11-05] MEDS ORDERED: LIDOCAINE HCL/PF 2% SDV 5ML VIAL ONE (15:52)
[2018-11-05] MEDS ORDERED: ceFAZolin SODIUM 1 GM VIAL ONE (15:52)
[2018-11-05] MEDS ORDERED: SODIUM BICARBONATE 8.4% - 50 ML ONE (15:52)
[2018-11-05] MEDS ORDERED: EPINEPHrine/PF 1 MG/1 ML (1:1,000) AMPULE ONE (15:52)
[2018-11-05] MEDS ORDERED: SODIUM CHLORIDE 0.9% P/F 10 ML VIAL IJ ONE (15:59)
--- NOTE | 2018-11-05 16:09 | PN ---
Progress Note (short form) - Note Progress Note: cx 8 cm , thick ant. lip cervix, OP ,not reduciable no descent , advised c/s, risks discussed
[2018-11-05] MEDS ORDERED: CITRIC ACID/SODIUM CITRATE 30 ML UNIT-DOSE CUP PO ONE (16:22)
[2018-11-05] MEDS ORDERED: KETOROLAC TROMETHAMINE 30 MG/1 ML VIAL ONE (16:51)
[2018-11-05] MEDS ORDERED: BENZOCAINE 28 GM HEMORRHOIDAL OINTMENT PR PRN (17:33)
[2018-11-05] MEDS ORDERED: BENZOCAINE 20% 57 GM BOTTLE TP PRN (17:33)
[2018-11-05] MEDS ORDERED: IBUPROFEN 800 MG/8 ML IJ IVPB PRN (17:33)
[2018-11-05] MEDS ORDERED: oxyCODONE HCL 5 MG TABLET PO PRN ×2 (17:33)
[2018-11-05] MEDS ORDERED: WITCH HAZEL 50% (TUCKS) 40 PAD/JAR PAD TP PRN (17:33)
[2018-11-05] MEDS ORDERED: diphenhydrAMINE HCL 25 MG CAPSULE (FP) PO PRN (17:33)
[2018-11-05] MEDS ORDERED: METHYLERGONOVINE MALEATE 0.2 MG/1 ML AMP IM PRN (17:33)
--- NOTE | 2018-11-05 17:38 | OP ---
Operative Note - Note: Operative Date: 11/05/18 Pre-Operative Diagnosis: post date, oligo, failure to dilate Operation: primary LST c/s Findings: baby boy ROT , 9/9 , 8Lb 19 inches Surgeon: Matias Molina Sharepoint Trainer: Lonnie Mccann Anesthesia: Epidural Specimens Removed: placenta Estimated Blood Loss (mls): 700 Blood Volume Replaced (mls): 0 Operative Report Dictated: Yes
[2018-11-05] MEDS ORDERED: DEXTROSE 5%-LACTATED RINGERS 1,000 ML IV SCH (17:45)
[2018-11-05] MEDS ORDERED: OXYTOCIN 20 UNITS in 0.9% NS 20 UNIT/1,000 ML INFUS.BAG IV SCH (17:45)
[2018-11-05] MEDS ORDERED: morphine SULFATE/PF 0.5 MG/ML (2cc Syringe - QUVA) EP ONE (17:50)
[2018-11-05] MEDS ORDERED: ONDANSETRON 4 MG/2 ML VIAL IVPUSH PRN (17:50)
--- NOTE | 2018-11-05 19:03 | PN ---
Progress Note (short form) - Note Progress Note: I assisted Dr. Molina at primary c/section throughout its entirety.
[2018-11-06] MEDS: CEFAZOLIN 1 GM/D5W 1 GM/50 ML BAG IVPB SCH ×2 (00:27→07:59)
[2018-11-06 08:18] LABS: BASO % 0.1 % (0-2.0); EOS % 0.1 % (0-4.5); HEMATOCRIT 23.1 % (32.4-45.2); HEMOGLOBIN 7.8 GM/dL (10.7-15.3); LYMPH % 13.8 % (8-40); MCH 26.4 pg (25.7-33.7); MCHC 33.8 g/dl (32.0-36.0); MEAN CELL VOLUME 78.1 fl (80-96); MEAN PLT VOLUME 9.3 fl (7.5-11.1); MONO % 6.8 % (3.8-10.2); NEUT % 79.2 % (42.8-82.8); PLATELET COUNT 216 K/MM3 (134-434); RBC 2.95 M/mm3 (3.60-5.2); RDW 14.6 % (11.6-15.6); WHITE BLOOD COUNT 11.7 K/mm3 (4.0-10.0)
--- NOTE | 2018-11-06 08:25 | PN ---
HC Provider Note Provider Note: Anesthesia Post op Note Pt seen s/p epidural for labor and c/section Pt denies n/v, h/a, puritis or urinary retention Pt reports good pain control and full return of sensory and motor function b/l LE VSS no apparent anesthesia complications Norah Young.
[2018-11-06] MEDS: ENOXAPARIN NA (PORCINE) 40 MG/0.4 ML DISP.SYRIN SQ SCH (09:11)
[2018-11-06] MEDS ORDERED: DIPHTH,PERTUSS(ACELL),TET 0.5 ML DISP.SYRIN IM ONE (10:00)
[2018-11-06] MEDS ORDERED: BISACODYL 10 MG SUPP.RECT PR PRN (17:34)
--- NOTE | 2018-11-06 22:10 | PN ---
Progress Note (short form) - Note Progress Note: pod 1 s/p c/s doing well, no excess vaginal bleeding,no dizziness CBC, BMP 11/06/18 07:32 11/04/18 14:46 Last Vital Signs Temp Pulse Resp BP Pulse Ox 99.3 F 110 H 20 108/69 97 11/06/18 14:00 11/06/18 14:00 11/06/18 17:00 11/06/18 14:00 11/06/18 02:38 abdomen soft, no distension , no cva incision dry, clean no calf tenderness lochia mild plan ambulate , advance diet iron vit
[2018-11-07] MEDS: ACETAMINOPHEN 325 MG TABLET (FP) PO PRN ×3 (00:55→20:15)
[2018-11-07] MEDS: IBUPROFEN 600 MG TABLET (FP) PO PRN ×2 (00:57→20:15)
[2018-11-07] MEDS: SIMETHICONE 80 MG TAB.CHEW (FP) PO PRN ×2 (00:58→20:15)
--- NOTE | 2018-11-07 09:01 | OP ---
DATE OF OPERATION: 11/06/2018 PREOPERATIVE DIAGNOSIS: , post dates; labor; failure to dilate. POSTOPERATIVE DIAGNOSIS: , post dates; labor; failure to dilate. PROCEDURE: Primary low segment transverse section. SURGEON: Mare Molina MD RADIO OPERATOR GROUND: Lonnie Mccann ANESTHESIA: Epidural. ANESTHESIOLOGIST: Jarad Young ESTIMATED BLOOD LOSS: 700 mL. DESCRIPTION OF PROCEDURE: Patient was taken to the operating room where under adequate epidural anesthesia abdomen and perineum were prepped and draped. Pfannenstiel abdominal skin incision was made. Abdominal wall was cut [id number] until the peritoneum was exposed and incised. Upon entry into the abdominal cavity, lower uterine segment was identified and uterovesical fold of the peritoneum was established. Bladder was pushed down. A low transverse incision was made and the incision was extended laterally. Amniotic sac was entered. Clear fluid. Head delivered from right occiput transverse position. Nasal sinuses were suctioned and live baby was delivered without any difficulty. Placenta was delivered manually. Uterine cavity was cleaned of all remaining tissue. Uterine incision was closed in 2 layers, first layer with 0 Biosyn continuous suture and the second layer with 0 Biosyn imbricating the first layer. Bladder flap was closed with 0 Biosyn continuous suture. Both tubes and ovaries were checked and were normal. No active bleeding was seen. All of the lap pad, sponge, and instrument counts were correct. The peritoneum was closed with 0 Biosyn continuous suture, muscles were brought together in interrupted sutures of 0 Biosyn. Fascia was closed with 0 Biosyn continuous suture, subcutaneous fat with interrupted suture of 0 Biosyn, and skin was closed with 4-0 Biosyn subcuticular continuous suture. Patient tolerated the procedure well and left the OR in good condition. MARE MOLINA M.D. [id number]
[2018-11-07] MEDS: ENOXAPARIN NA (PORCINE) 40 MG/0.4 ML DISP.SYRIN SQ SCH (10:30)
--- NOTE | 2018-11-07 21:32 | PN ---
Progress Note (short form) - Note Progress Note: pod 2 s/p c/s . doing well, ambulating , no dizziness CBC, BMP 11/06/18 07:32 11/04/18 14:46 abdomen soft, no distension, no cva incision dry, clean no calf tenderness plan ambulate , cbc in am
[2018-11-07] MEDS ORDERED: SENNOSIDES/DOCUSATE COMBO (SENNA PLUS) TABLET (UD) PO PRN (22:00)
[2018-11-08] MEDS: IBUPROFEN 600 MG TABLET (FP) PO PRN ×2 (06:24→11:05)
[2018-11-08] MEDS: SIMETHICONE 80 MG TAB.CHEW (FP) PO PRN ×2 (06:24→11:06)
[2018-11-08] MEDS: ACETAMINOPHEN 325 MG TABLET (FP) PO PRN ×2 (06:24→11:06)
[2018-11-08 08:02] LABS: BASO % 0.2 % (0-2.0); EOS % 1.9 % (0-4.5); HEMATOCRIT 20.1 % (32.4-45.2); LYMPH % 14.5 % (8-40); MCH 26.9 pg (25.7-33.7); MCHC 34.7 g/dl (32.0-36.0); MEAN CELL VOLUME 77.4 fl (80-96); MEAN PLT VOLUME 8.9 fl (7.5-11.1); MONO % 6.4 % (3.8-10.2); PLATELET COUNT 233 K/MM3 (134-434); WHITE BLOOD COUNT 8.6 K/mm3 (4.0-10.0)
[2018-11-08] MEDS: ENOXAPARIN NA (PORCINE) 40 MG/0.4 ML DISP.SYRIN SQ SCH (09:52)
--- NOTE | 2018-11-08 10:26 | DS ---
Physical Examination Vital Signs: Vital Signs Temperature 97.5 F L 11/08/18 01:58 Pulse Rate 115 H 11/07/18 22:00 Respiratory Rate 18 11/07/18 22:00 Blood Pressure 131/76 11/07/18 22:00 O2 Sat by Pulse Oximetry (%) 97 11/06/18 02:38 Findings/Remarks: ambulating, tolerating PO, lochia decreased, desiring to go home Constitutional: Yes: Well Nourished Eyes: Yes: WNL HENT: Yes: Atraumatic Neck: Yes: Supple Cardiovascular: Yes: Regular Rate and Rhythm Respiratory: Yes: Regular Gastrointestinal: Yes: Normal Bowel Sounds ...Rectal Exam: Yes: Deferred Renal/: Yes: WNL Breast(s): Yes: Other (deferred) Musculoskeletal: Yes: WNL. No: Muscle Weakness Extremities: Yes: WNL Edema: Yes Edema: LLE: 1+, RLE: 1+ Integumentary: Yes: WNL Wound/Incision: Yes: Well Approximated, Sutures Intact Neurological: Yes: Alert, Oriented ...Motor Strength: WNL Psychiatric: Yes: Alert, Oriented Labs: CBC, BMP 11/08/18 07:15 11/04/18 14:46 Discharge Summary Reason For Visit: INDUCTION OF LABOR Anemia Procedures: Principal: CD Hospital Course: Complicated by asymptomatic anemia. Patient offered blood transfusion and declined. risks and complications of anemia explained and all questions answered. Precautions and post-op warning signs discussed. Condition: Stable - Instructions Diet, Activity, Other Instructions: Regular. Follow at health center within a week for post-op check Referrals: Fabián You MD [Staff Physician] - Disposition: HOME - Home Medications Comprehensive Discharge Medication List: Ambulatory Orders Feosol 1 tab PO DAILY 11/04/18 19 Tablet 1 tab PO DAILY 11/04/18
[2018-11-08 11:05] VITALS: BP 105/64; PULSE 94; TEMP 97.4
--- NOTE | 2018-11-14 16:26 | PATH ---
Surgical Pathology Report Patient Name: CULLEN FARMER Med. Rec. #: [id number] /Age/Gender: 1995 (Age: 23) / F Account: [id number] Location: [facility] OBS/BOX OFFICE ATTENDANT Taken: 11/05/2018 Received: 11/07/2018 Reported: 11/14/2018 Physicians: Matias Molina M.D. Specimen(s) Received PLACENTA Clinical History , 40.2 weeks' gestation, failure to dilate, macrosomia Final Diagnosis PLACENTA: THIRD TRIMESTER PLACENTA. TRIVASCULAR CORD. MEMBRANES WITH NO DIAGNOSTIC ABNORMALITIES. Electronically Signed Raquel Santillna M.D. Gross Description The specimen is received fresh labeled placenta and is a 575 gram, 20.0 x 16.5 x 3.8 cm. placenta with attached membranes and umbilical cord. The attached membranes are brown, translucent with focal opacities and insert marginally. The umbilical cord measures 14 cm. in length and averages 1.1 cm. in diameter. The cord inserts eccentrically, 6 cm. to the nearest margin. No true knots or strictures are identified. Cut surface of the umbilical cord reveals 3 vessels. The surface is mallory-blue with minimal fibrin deposition and appropriate caliber vessels. The maternal surface is red-brown with focal defects. Sectioning reveals red-brown, spongy parenchyma. No lesions are identified. Radio Mechanic sections are submitted in three cassettes as follows: 1- membrane rolls and umbilical cord; 2-3- full thickness sections of placenta. /11/10/2018 saudi11/10/2018
== END 2018-11-08 13:12 | disposition home or self-care (01) | DRG 540 ==
LOC: JDEL 13:45 → JLDR 14:10 → J3W 11-05 20:00
PROVIDERS: ADMIT Obstetrics & Gynecology; ATTEND Obstetrics & Gynecology
PROC: 10D00Z1 Extraction of Products of Conception, Low, Open Approach (ICD-10-PCS; principal; 2018-11-05)
DX: O48.0 Post-term pregnancy (principal); O41.03X0 Oligohydramnios, third trimester, not applicable or unspecified; O90.81 Anemia of the puerperium; O62.0 Primary inadequate contractions; Z3A.40 40 weeks gestation of pregnancy; Z37.0 Single live birth
CPT/HCPCS: 36415; 36600; 80048; 82803; 85025; 85610; 85730; 86593; 86850; 86900; 86901; 88307-TC; 90715

== ENCOUNTER 2022-04-03 18:10 | Inpatient (IN) | payer OTHER ==
[2022-04-03] MEDS ORDERED: ELECTROLYTE-148 SOLN 1,000 ML IV SCH (19:19)
[2022-04-03 20:06] VITALS: BP 119/75; PULSE 84; RESP 18
[2022-04-03 20:37] LABS: BASO % 0.6 % (0-2.0); HEMATOCRIT 34.1 % (32.4-45.2); HEMOGLOBIN 11.5 GM/dL (10.7-15.3); LYMPH % 23.2 % (8-40); MCH 26.9 pg (25.7-33.7); MCHC 33.6 g/dl (32.0-36.0); MEAN PLT VOLUME 9.8 fl (7.5-11.1); MONO % 5.1 % (3.8-10.2); NEUT % 70.1 % (42.8-82.8); PLATELET COUNT 252 10^3/uL (134-434); RBC 4.27 M/mm3 (3.60-5.2); RDW 14.7 % (11.6-15.6); WHITE BLOOD COUNT 9.3 K/mm3 (4.0-10.0)
[2022-04-03] MEDS ORDERED: PROMETHAZINE HCL 25 MG/1 ML VIAL IVPB ONE (20:45)
[2022-04-03] MEDS ORDERED: BUTORPHANOL TARTRATE 2 MG/ML VIAL IVPB ONE (20:45)
[2022-04-03 20:46] LABS: INR 0.98 (0.83-1.09); PROTHROMBIN TIME (PATIENT) 11.3 SEC (9.7-13.0)
[2022-04-03 20:49] LABS: ACTIVATED PTT 28.9 SECONDS (25.2-36.5)
[2022-04-03 20:58] LABS: BLOOD UREA NITROGEN 15.2 mg/dL (7-18); CALCIUM 8.6 mg/dL (8.5-10.1)
[2022-04-03 21:02] LABS: CREATININE 0.5 mg/dL (0.55-1.3)
== END 2022-04-03 21:51 | disposition home or self-care (01) | DRG 565 ==
LOC: JDEL 18:10 → JLDR 19:15
PROVIDERS: ADMIT Obstetrics & Gynecology; ATTEND Obstetrics & Gynecology
DX: O47.1 False labor at or after 37 completed weeks of gestation (principal); Z3A.38 38 weeks gestation of pregnancy
CPT/HCPCS: 36415; 80048; 85025; 85610; 85730; 86762; 86780; 86850; 86900; 86901; 87340; C9803-CS; U0003; U0005

== ENCOUNTER 2022-04-07 02:50 | Inpatient (IN) | payer OTHER ==
[2022-04-07] MEDS: ELECTROLYTE-148 SOLN 1,000 ML IV SCH ×2 (04:45→07:05)
[2022-04-07] MEDS ORDERED: PROMETHAZINE HCL 25 MG/1 ML VIAL IVPB ONE (05:00)
[2022-04-07] MEDS ORDERED: BUTORPHANOL TARTRATE 2 MG/ML VIAL IVPB ONE (05:00)
[2022-04-07] MEDS ORDERED: PROMETHAZINE HCL 25 MG/1 ML VIAL ONE (05:03)
[2022-04-07] MEDS ORDERED: BUTORPHANOL TARTRATE 2 MG/ML VIAL ONE (05:03)
[2022-04-07] MEDS ORDERED: FENTANYL CITRATE/PF 50 MCG/ML VIAL ONE (07:48)
[2022-04-07] MEDS ORDERED: BUPIVACAINE HCL/PF 0.25% (2.5MG/ML) 10 ML VIAL ONE (07:49)
[2022-04-07] MEDS ORDERED: FENTANYL/BUPIVACAINE/NS/PF - PCEA - 50 ML DISP.SYRIN EP ONE (07:50)
[2022-04-07] MEDS: FENTANYL/BUPIVACAINE/NS/PF - PCEA - 50 ML DISP.SYRIN EP SCH (08:10)
[2022-04-07] MEDS ORDERED: NALOXONE HCL 0.4 MG/ML VIAL IVPUSH PRN (08:19)
[2022-04-07] MEDS ORDERED: OXYTOCIN 30 UNITS in 0.9% NS 30 UNIT/500 ML INFUS.BAG IVPB ONE (09:58)
[2022-04-07] MEDS ORDERED: OXYTOCIN 20 UNITS in 0.9% NS 20 UNIT/1,000 ML INFUS.BAG IV ONE ×2 (09:58→18:35)
[2022-04-07] MEDS ORDERED: OXYTOCIN 10 UNITS/ML VIAL ONE (10:38)
[2022-04-07 12:04] VITALS: BMI 37.8
[2022-04-07 12:07] LABS: CORD BASE EXCESS -6.5 mmol/L (0-2); CORD HCO3 21.1 mmHg (20-29); CORD pH 7.251 (7.14-7.44)
[2022-04-07 12:10] LABS: CORD BASE EXCESS -9.1 mmol/L (0-2); CORD HCO3 21.6 mmHg (20-29); CORD PCO2 67.5 mmHg (30-78); CORD pH 7.124 (7.14-7.44)
[2022-04-07] MEDS ORDERED: ceFAZolin SODIUM 1 GM VIAL ONE ×2 (12:20→18:34)
[2022-04-07] MEDS ORDERED: CEFAZOLIN SODIUM 2 GM in DEXTROSE 5%-WATER 100 ML IVPB ONE (12:26)
[2022-04-07 12:55] LABS: HEMATOCRIT 30.4 % (32.4-45.2); HEMOGLOBIN 10.1 GM/dL (10.7-15.3); MCH 26.5 pg (25.7-33.7); MCHC 33.1 g/dl (32.0-36.0); MEAN PLT VOLUME 9.7 fl (7.5-11.1); PLATELET COUNT 269 10^3/uL (134-434); RDW 14.5 % (11.6-15.6); WHITE BLOOD COUNT 24.9 K/mm3 (4.0-10.0)
[2022-04-07] MEDS ORDERED: BISACODYL 10 MG SUPP.RECT RC PRN (13:01)
[2022-04-07] MEDS ORDERED: BENZOCAINE 20% 57 GM BOTTLE TP PRN (13:01)
[2022-04-07] MEDS ORDERED: oxyCODONE HCL 5 MG TABLET PO PRN (13:01)
[2022-04-07] MEDS ORDERED: WITCH HAZEL 50% (TUCKS) 40 PAD/JAR PAD TP PRN (13:01)
[2022-04-07] MEDS ORDERED: ACETAMINOPHEN 325 MG TABLET (FP) PO PRN (13:01)
[2022-04-07] MEDS ORDERED: METHYLERGONOVINE MALEATE 0.2 MG/1 ML AMP IM PRN (13:01)
[2022-04-07] MEDS ORDERED: BENZOCAINE 28 GM HEMORRHOIDAL OINTMENT TP PRN (13:01)
[2022-04-07] MEDS ORDERED: OXYTOCIN 20 UNITS in 0.9% NS 20 UNIT/1,000 ML INFUS.BAG IV SCH (13:15)
[2022-04-07] MEDS ORDERED: ceFAZolin 2 GRAM PREMIX BAG IVPB SCH (13:15)
[2022-04-07 13:31] LABS: ANISOCYTOSIS 1+; MACROCYTOSIS 0
[2022-04-07] MEDS ORDERED: ACETAMINOPHEN 1000 MG/100 ML BAG IVPB ONE (15:20)
[2022-04-07] MEDS ORDERED: ACETAMINOPHEN INJECTION 100 ML IVPB ONE (15:22)
[2022-04-07] MEDS: FERROUS SO4 325 MG TABLET (FP) PO SCH ×2 (16:19→22:24)
[2022-04-07] MEDS: ceFAZolin 2 GRAM PREMIX BAG IVPB SCH (19:45)
[2022-04-07] MEDS: IBUPROFEN 600 MG TABLET (FP) PO PRN (22:31)
[2022-04-08] MEDS: ceFAZolin 2 GRAM PREMIX BAG IVPB SCH ×3 (04:30→15:28)
[2022-04-08] MEDS ORDERED: ceFAZolin SODIUM 1 GM VIAL ONE (04:31)
[2022-04-08 08:18] LABS: BASO % 0.3 % (0-2.0); EOS % 0.7 % (0-4.5); HEMATOCRIT 20.1 % (32.4-45.2); LYMPH % 22.7 % (8-40); MCH 26.7 pg (25.7-33.7); MCHC 33.2 g/dl (32.0-36.0); MEAN CELL VOLUME 80.4 fl (80-96); MEAN PLT VOLUME 9.2 fl (7.5-11.1); MONO % 5.6 % (3.8-10.2); NEUT % 70.7 % (42.8-82.8); PLATELET COUNT 177 10^3/uL (134-434); RDW 14.6 % (11.6-15.6); WHITE BLOOD COUNT 9.8 K/mm3 (4.0-10.0)
[2022-04-08 08:20] LABS: HEMOGLOBIN 6.7 GM/dL (10.7-15.3)
[2022-04-08] MEDS: ELECTROLYTE-148 SOLN 1,000 ML IV SCH ×2 (09:30→09:31)
[2022-04-08] MEDS: FENTANYL/BUPIVACAINE/NS/PF - PCEA - 50 ML DISP.SYRIN EP SCH (09:32)
[2022-04-08] MEDS: DOCUSATE SODIUM 100 MG CAPSULE (FP) PO SCH (09:33)
[2022-04-08] MEDS: FERROUS SO4 325 MG TABLET (FP) PO SCH ×2 (09:34→22:06)
[2022-04-08] MEDS: PRENATAL VITAMINS W/ FOLIC ACID TABLET (FP) PO SCH (09:34)
[2022-04-08] MEDS ORDERED: CEFAZOLIN SODIUM 2 GM in DEXTROSE 5%-WATER 100 ML IVPB ONE (15:15)
[2022-04-08] MEDS: IBUPROFEN 600 MG TABLET (FP) PO PRN (19:36)
[2022-04-08] MEDS ORDERED: SENNOSIDES/DOCUSATE COMBO (SENNA PLUS) TABLET (UD) PO PRN (22:00)
[2022-04-09] MEDS: IBUPROFEN 600 MG TABLET (FP) PO PRN (08:00)
[2022-04-09 09:19] LABS: BASO % 0.4 % (0-2.0); EOS % 1.5 % (0-4.5); HEMATOCRIT 26.8 % (32.4-45.2); MCH 27.1 pg (25.7-33.7); MCHC 33.7 g/dl (32.0-36.0); MEAN CELL VOLUME 80.3 fl (80-96); MEAN PLT VOLUME 8.9 fl (7.5-11.1); MONO % 5.2 % (3.8-10.2); NEUT % 72.9 % (42.8-82.8); PLATELET COUNT 218 10^3/uL (134-434); RBC 3.33 M/mm3 (3.60-5.2); RDW 14.4 % (11.6-15.6); WHITE BLOOD COUNT 10.2 K/mm3 (4.0-10.0)
[2022-04-09] MEDS: DOCUSATE SODIUM 100 MG CAPSULE (FP) PO SCH (09:28)
[2022-04-09] MEDS: PRENATAL VITAMINS W/ FOLIC ACID TABLET (FP) PO SCH (09:28)
[2022-04-09] MEDS: FERROUS SO4 325 MG TABLET (FP) PO SCH (09:28)
[2022-04-09 10:01] VITALS: BP 136/73; PULSE 97; RESP 18; TEMP 98.1
== END 2022-04-09 16:40 | disposition home or self-care (01) | DRG 560 ==
LOC: JDEL 02:50 → JLDR 06:55 → J3W 20:30
PROVIDERS: ADMIT Obstetrics & Gynecology; ATTEND Obstetrics & Gynecology
PROC: 10D07Z6 Extraction of Products of Conception, Vacuum, Via Natural or Artificial Opening (ICD-10-PCS; principal; 2022-04-07)
PROC: 10H073Z Insertion of Monitoring Electrode into Products of Conception, Via Natural or Artificial Opening (ICD-10-PCS; 2022-04-07)
PROC: 0W8NXZZ Division of Female Perineum, External Approach (ICD-10-PCS; 2022-04-07)
PROC: 30233N0 Transfusion of Autologous Red Blood Cells into Peripheral Vein, Percutaneous Approach (ICD-10-PCS; 2022-04-08)
DX: O34.211 Maternal care for low transverse scar from previous cesarean delivery (principal); O72.1 Other immediate postpartum hemorrhage; O90.81 Anemia of the puerperium; D62 Acute posthemorrhagic anemia; O86.4 Pyrexia of unknown origin following delivery; O99.214 Obesity complicating childbirth; E66.9 Obesity, unspecified; O75.81 Maternal exhaustion complicating labor and delivery; O69.81X0 Labor and delivery complicated by cord around neck, without compression, not applicable or unspecified; Z3A.39 39 weeks gestation of pregnancy; Z37.0 Single live birth
CPT/HCPCS: 36415; 36430; 36511; 36600; 59409; 82803; 85025; 86850; 86900; 86901; 86922; C9803-CS; P9038; P9058; U0003; U0005

== ENCOUNTER 2023-03-16 01:58 | Emergency (ER) | payer SELFPAY ==
[2023-03-16 02:09] VITALS: BP 126/85; PULSE 94; RESP 18; TEMP 98.6; BMI 40.8
[2023-03-16] MEDS ORDERED: KETOROLAC TROMETHAMINE 30 MG/1 ML VIAL IM ONE (02:47)
[2023-03-16] MEDS ORDERED: AMOXICILLIN 500 MG CAPSULE (FP) PO ONE (02:47)
[2023-03-16] MEDS ORDERED: DEXAMETHASONE 4 MG TABLET (FP) PO ONE (02:48)
[2023-03-16] MEDS ORDERED: AMOX TR/POT CLAV 500MG/125MG TABLETS (FP) ONE (03:04)
[2023-03-16] MEDS ORDERED: KETOROLAC TROMETHAMINE 30 MG/1 ML VIAL ONE (03:04)
[2023-03-16] MEDS ORDERED: DEXAMETHASONE SOD PHOSPHATE 10 MG/1 ML VIAL ONE (03:04)
[2023-03-16 03:15] LABS: THROAT:GRP A STREP DETECTED (NOTDETECTED)
== END 2023-03-16 03:35 | disposition home or self-care (01) ==
LOC: JER 01:58
PROC: 3E0233Z Introduction of Anti-inflammatory into Muscle, Percutaneous Approach (ICD-10-PCS; principal; 2023-03-16)
DX: J02.0 Streptococcal pharyngitis (principal); H66.92 Otitis media, unspecified, left ear; H92.02 Otalgia, left ear; Z20.822 Contact with and (suspected) exposure to COVID-19
CPT/HCPCS: 0241U-QW; 87651; 99284-25